=== PATIENT | male | born 1980 | race Caucasian/White ===

== ENCOUNTER 2016-03-26 16:07 | Emergency (ER) | payer OTHER ==
[~2016-03-26] VITALS: Ht 182.9 cm; Wt 83.4 kg
[~2016-03-26 16:07] MED LIST: CYCL-36 PO; IBUP800 PO
[2016-03-26 16:19] VITALS: BP 154/88; PULSE 88; RESP 18; TEMP 99; O2SAT 97
--- NOTE | 2016-03-26 16:53 | PD ---
HPI Chief Complaint: Eye Problems/Injury Time Seen by Provider: 16:53 Travel History International Travel<30 days: No Contact w/Intl Traveler<30days: No Traveled to known affect area: No History of Present Illness HPI 36-year-old male presents to the emergency department for evaluation of left eye injury that occurred earlier today at work. The patient states that he was using a jackhammer to break up concrete and was wearing safety glasses when a piece of concrete flew up and underneath his safety glasses hitting him in the left eye. States that he has redness to the medial aspect left eye since this occurred. States he does have pain in the eye with some blurred vision and increased tearing. Denies wearing contact lenses or glasses. Denies photophobia, headache, dizziness, nausea, vomiting. No modifying factors. Severity is moderate. No other complaints. PFSH Past Medical History Medical History: Denies Significant Hx Diminished Hearing: No Respiratory: Yes (CHILDHOOD ASTHMA) Immunizations Current: No Tetanus Vaccination: < 5 Years Influenza Vaccination: No ?: Not Past Surgical History Other Surgery: Yes (BILAT HERNIA A CHILD) Social History Alcohol Use: Yes (OCC) Tobacco Use: Yes (02/11 PPD) Substance Use: No Allergies-Medications (Allergen,Severity, Reaction): Coded Allergies: No Known Allergies (Unverified , 03/26/16) Reported Meds & Prescriptions Reported Meds & Active Scripts Active Lortab (Hydrocodone-Acetaminophen) 5-325 Mg Tab 1 Tab PO Q6H PRN Ketorolac Opth Drops 0.5% Drops 1 Drop LEFT EYE BID 4 Days Erythromycin Opth Oint 5 Mg/Gm Oint 1 Applic LEFT EYE QID 5 Days Review of Systems Except as stated in HPI: all other systems reviewed are Neg Physical Exam Narrative GENERAL: Well-nourished and well-developed pleasant patient in no acute distress who is nontoxic appearing. SKIN: Warm and dry. HEAD: Normocephalic and atraumatic. EYES: Left eye with subconjunctival hemorrhage to the medial aspect. No foreign body on lid eversion. No drainage or hyphema noted. PERRLA. EOMI. Fluorescein stain reveals a pinpoint area of uptake at the 10 o'clock position on the left cornea. No ulcerations or foreign bodies noted. Visual acuity is equal bilaterally. ENT: No nasal drainage noted. Oropharynx is clear. NECK: Supple and the trachea is midline. CARDIOVASCULAR: Regular rate and rhythm. RESPIRATORY: Breath sounds are equal bilaterally with no accessory muscle use, wheezing, rhonchi, or crackles. NEUROLOGICAL: Awake, alert, and oriented. Normal speech and gait. Cranial nerves are grossly intact. Data Data Last Documented VS Vital Signs Date Time Temp Pulse Resp B/P Pulse Ox O2 Delivery O2 Flow Rate FiO2 03/26/16 16:19 99.0 88 18 154/88 97 MDM Medical Decision Making Medical Screen Exam Complete: Yes Emergency Medical Condition: Yes Differential Diagnosis Corneal abrasion versus subconjunctival hemorrhage versus foreign body Narrative Course 36-year-old male presents to the emergency department for evaluation of left eye injury secondary to a piece of concrete flying up and hitting him in the eye at work. Patient is afebrile, vital signs are stable. He has subconjunctival hemorrhage and a small corneal abrasion. Visual acuity is intact. Patient will be prescribed erythromycin ointment and pain medication. Per the recommendation of my attending physician Dr. Ibrahim he'll be prescribed ketorolac eyedrops for pain control. He is instructed to follow-up with an denture technician as an outpatient. Patient verbalizes understanding and agreement with treatment plan. Diagnosis Primary Impression: Left corneal abrasion Qualified Code: S05.02XA - Left corneal abrasion, initial encounter Additional Impression: Subconjunctival hemorrhage of left eye Referrals: [facility] Patient Instructions: Corneal Abrasion (ED), General Instructions, Subconjunctival Hemorrhage (ED) Additional Instructions: Medications as prescribed. Follow-up with an denture technician. Return to the ED for any acute worsening of symptoms. Med/Other Pt SpecificInfo: Prescription(s) given Scripts Hydrocodone-Acetaminophen (Lortab)5-325 Mg Tab1 Tab PO Q6H PRN (PAIN GREATER THAN 6) #12 TAB Ref 0 Prov:Megan Ibrahim MD 03/26/16 Ketorolac Opth Drops 0.5% Drops1 Drop LEFT EYE BID 4 Days Ref 0 Prov:Megan Ibrahim MD 03/26/16 Erythromycin Opth Oint 5 Mg/Gm Oint1 Applic LEFT EYE QID 5 Days Ref 0 Prov:Megan Ibrahim MD 03/26/16 Disposition: 01 DISCHARGE HOME Condition: Stable Elaine Valencia Mar 26, 2016 16:53
[2016-03-26] MEDS ORDERED: HYDR-3533 PO (16:56)
[2016-03-26] MEDS ORDERED: ERYTOIN10 LEFT EYE (16:56)
[2016-03-26] MEDS ORDERED: KETO0.5S2 LEFT EYE (16:56)
== END 2016-03-26 17:08 | disposition home or self-care (01) ==
LOC: PHEFT 16:07
DX: S05.02XA Injury of conjunctiva and corneal abrasion without foreign body, left eye, initial encounter (principal); H11.32 Conjunctival hemorrhage, left eye; H53.8 Other visual disturbances; W20.8XXA Other cause of strike by thrown, projected or falling object, initial encounter; Y93.H3 Activity, building and construction; Y99.0 Civilian activity done for income or pay; F17.210 Nicotine dependence, cigarettes, uncomplicated
CPT/HCPCS: 99283

== ENCOUNTER 2017-03-20 12:44 | Emergency (ER) | payer OTHER ==
[~2017-03-20] VITALS: Ht 185.4 cm; Wt 84.3 kg
[~2017-03-20 12:44] MED LIST changes: -CYCL-36 PO; +ERYTOIN10 LEFT EYE; +HYDR-3533 PO; -IBUP800 PO; +KETO0.5S2 LEFT EYE
[2017-03-20 12:46] VITALS: BP 156/79; PULSE 102; RESP 18; TEMP 99; O2SAT 97
--- NOTE | 2017-03-20 13:13 | PD ---
HPI Chief Complaint: Cold / Flu Symptoms Time Seen by Provider: 12:57 Travel History International Travel<30 days: No Contact w/Intl Traveler<30days: No Traveled to known affect area: No History of Present Illness HPI 37 year old male with influenza like illness x 3 days. He reports possible fever, body aches, sore throat. He asked the pharmacist at a local [facility] what he could take to treat the flu the pharmacist instructed that he come to the emergency department for evaluation which is why the patient is here today. No sick contacts or foreign travel. Symptom severity is mild. PFSH Past Medical History Medical History: Denies Significant Hx Diminished Hearing: No Respiratory: Yes (CHILDHOOD ASTHMA) Immunizations Current: No ?: Not Past Surgical History Other Surgery: Yes (BILAT HERNIA A CHILD) Social History Alcohol Use: Yes (OCC) Tobacco Use: Yes (1/2 PPD) Substance Use: No Allergies-Medications (Allergen,Severity, Reaction): Coded Allergies: No Known Allergies (Unverified , 03/26/16) Reported Meds & Prescriptions Reported Meds & Active Scripts Active Lortab (Hydrocodone-Acetaminophen) 5-325 Mg Tab 1 Tab PO Q6H PRN Ketorolac Opth Drops 0.5% Drops 1 Drop LEFT EYE BID 4 Days Erythromycin Opth Oint 5 Mg/Gm Oint 1 Applic LEFT EYE QID 5 Days Review of Systems Except as stated in HPI: all other systems reviewed are Neg General / Constitutional: Positive: Fever Eyes: No: Visual changes HENT: Positive: Sore Throat, No: Headaches Cardiovascular: No: Chest Pain or Discomfort Respiratory: Positive: Cough, No: Shortness of Breath Gastrointestinal: No: Abdominal Pain Genitourinary: No: Dysuria Musculoskeletal: Positive: Myalgias Physical Exam Narrative GENERAL: Alert and well-appearing 37-year-old male SKIN: Warm and dry. No rash HEAD: Normocephalic. EYES: No injection or drainage. Ears/nose/throat: No TM erythema. Clear nasal discharge. Mild pharyngeal erythema without tonsillar hypertrophy or exudate. Uvula is midline. NECK: Supple. No meningismus CARDIOVASCULAR: Regular rate and rhythm RESPIRATORY: Breath sounds equal bilaterally. No accessory muscle use. GASTROINTESTINAL: Abdomen soft, non-tender, nondistended. MUSCULOSKELETAL: No cyanosis, or edema. BACK: No CVA tenderness. Data Data Last Documented VS Vital Signs Date Time Temp Pulse Resp B/P (MAP) Pulse Ox O2 Delivery O2 Flow Rate FiO2 03/20/17 12:46 99.0 102 18 156/79 (104) 97 Orders Orders Ed Discharge Order (03/20/17 13:13) MDM Medical Decision Making Medical Screen Exam Complete: Yes Emergency Medical Condition: No Differential Diagnosis influenza, uri, PNA Narrative Course 37 year old male with influenza like illness x 3 days. he is well appearing. Vitals are stable. His not within the parameters to treat Tamiflu. He was instructed take Tylenol and ibuprofen to treat fevers. Stay well hydrated. A medical screening exam was performed: At the time of evaluation the presenting medical condition was determined not to be of an emergent nature. The patient was given the option of receiving additional care, but declined. Patient was given options for additional community resources from which to obtain care. The Patient Has Been advised to seek medical attention for their presenting complaint. The patient has been advised to return to the ER at any time if an emergent condition develops. Diagnosis Primary Impression: Encounter for medical screening examination Referrals: Primary Care Physician Departure Forms: Tests/Procedures, Work Release Enter return to work date: Mar 24, 2017 Disposition: 01 DISCHARGE HOME Condition: Stable ParishguiVanessa MAYS Mar 20, 2017 13:13
== END 2017-03-20 13:42 | disposition left against medical advice (07) ==
LOC: PHEFT 12:44
DX: R50.9 Fever, unspecified (principal); F17.210 Nicotine dependence, cigarettes, uncomplicated
CPT/HCPCS: 99281